=== PATIENT | male | born 1930 | race Caucasian/White ===

== ENCOUNTER 2020-06-05 10:02 | Inpatient (IN) | payer MEDICARE, OTHER ==
[~2020-06-05] VITALS: Ht 172.7 cm; Wt 64.9 kg
--- NOTE | 2020-06-05 10:05 | NUR ---
[facility]IB [facility],C/O CHEST PAIN ON INSPIRATION,NTG SPRAY X 1. VS CHECKED. HOOKEN ON MONITOR. IV ACCESS STARTED. BLOOD DRAW DONE. . AWAITING MD BULL.
[2020-06-05 10:24] LABS: MEAN CORPUSCULAR VOLUME 83 fL (80-96)
[2020-06-05 10:28] LABS: BASOPHILS # (AUTO) 0.3 /CMM (0.0-0.2); BASOPHILS % (AUTO) 2.7 % (0.0-2.0); EOSINOPHILS % (AUTO) 0.5 % (0.0-6.0); HEMATOCRIT 43 % (39-51); HEMOGLOBIN 14.4 g/dL (13.5-17.5); LYMPHOCYTES # (AUTO) 4.8 /CMM (0.8-4.8); MEAN CORPUSCULAR HGB CONC 33 g/dl (31.0-36.0); MONOCYTES # (AUTO) 0.9 /CMM (0.1-1.30); MONOCYTES % (AUTO) 9.4 % (2.0-12.0); NEUTROPHILS # (AUTO) 3.6 /CMM (1.8-8.9); NEUTROPHILS % (AUTO) 37.4 % (43.0-81.0); PLATELET COUNT (AUTO) 160 /CMM (150-450); RED BLOOD CELL COUNT(AUTO) 5.22 MIL/uL (4.5-6.0); WHITE BLOOD COUNT (AUTO) 9.7 K/uL (4.3-11.0)
[2020-06-05 10:31] LABS: CREATININE 0.9 mg/dL (0.6-1.3); POTASSIUM 3.9 mmol/L (3.5-5.1)
--- NOTE | 2020-06-05 11:01 | NUR ---
MOVE SHEET SUBMITTED AND CALLED FOR TELE BED.
[2020-06-05] MEDS ORDERED: MULT-447 PO (11:46)
[2020-06-05] MEDS ORDERED: CARB-93 PO (11:46)
[2020-06-05] MEDS ORDERED: BISA5TAB10 PO (11:46)
[2020-06-05] MEDS ORDERED: LOSA50TA39 PO (11:46)
[2020-06-05] MEDS ORDERED: HYDR-4384 PO (11:46)
[2020-06-05] MEDS ORDERED: AMAN100T PO (11:46)
[2020-06-05] MEDS ORDERED: NA P133E RC (11:46)
[2020-06-05] MEDS ORDERED: CRAN425C6 PO (11:46)
[2020-06-05] MEDS ORDERED: MAGN400O6 PO (11:46)
[2020-06-05] MEDS ORDERED: ACET-868 PO (11:46)
[2020-06-05] MEDS ORDERED: GABA-532 PO (11:46)
[2020-06-05] MEDS ORDERED: POLY17PO4 PO (11:46)
[2020-06-05] MEDS ORDERED: ACID1TAB12 PO (11:46)
[2020-06-05] MEDS ORDERED: DONE10TA44 PO (11:46)
[2020-06-05] MEDS ORDERED: CITA20TA19 PO (11:46)
[2020-06-05] MEDS ORDERED: LIDO30AD10 TP (11:46)
[2020-06-05] MEDS ORDERED: TERA2CAP4 PO (11:46)
[2020-06-05] MEDS ORDERED: DOCU-141 PO (11:46)
[2020-06-05] MEDS ORDERED: BISA10SU11 RC (11:46)
[2020-06-05] MEDS ORDERED: MELA3TAB41 PO (11:46)
[2020-06-05] MEDS ORDERED: CLON0.5T4 PO (11:46)
[2020-06-05] MEDS ORDERED: PANT40TA2 PO (11:46)
[2020-06-05] MEDS ORDERED: QUET25TA PO (11:46)
[2020-06-05] MEDS ORDERED: ACET-1951 PO (11:46)
[2020-06-05] MEDS ORDERED: TAMS-12 PO (11:46)
[2020-06-05] MEDS ORDERED: ATOR10TA PO (11:46)
--- NOTE | 2020-06-05 13:05 | NUR ---
[facility] ([facility]) [phone]
--- NOTE | 2020-06-05 13:47 | NUR ---
covid swab done sent to lab
[2020-06-05] MEDS ORDERED: MAGNESIUM HYDROXIDE 30 ML UDC PO PRN (14:00)
[2020-06-05] MEDS ORDERED: Z GUARD REMEDY 2 OZ OINT TP PRN (14:00)
[2020-06-05] MEDS ORDERED: ONDANSETRON HCL/PF 4 MG/2 ML VIAL IVP PRN (14:00)
[2020-06-05] MEDS ORDERED: MORPHINE SULFATE INJ 2 MG/ML DISP.SYRIN IV PRN (14:00)
[2020-06-05] MEDS ORDERED: MAG HYDROX/AL HYDROX/SIMETH 30 ML UDC PO PRN (14:00)
[2020-06-05] MEDS ORDERED: HYDROCODONE/APAP 5/325MG TABLET PO PRN (14:00)
[2020-06-05 14:45] LABS: D-DIMER 1.58 mg/L(FEU (0.17-0.50)
[2020-06-05 15:24] LABS: C-REACTIVE PROTEIN 2.8 mg/dL (0.0-0.9)
--- NOTE | 2020-06-05 16:55 | NUR ---
[facility] BED 120-1 RN IS LEONARD
--- NOTE | 2020-06-05 17:00 | NUR ---
report given to marilee szymanski at [facility].
--- NOTE | 2020-06-05 18:14 | NUR ---
transferred to [facility]
--- NOTE | 2020-06-05 18:15 | NUR ---
TASSEL CLIPPER NOTES RECEIVED PT FROM E.R. STAFF [facility]IA [facility], PT IS AWAKE, ALERT AND VERBALLY RESPONSIVE, ASSISTED TO BED, MADE COMFORTABLE, WITH COMPLAINT OF SLIGHT CHEST PAIN WHEN BREATHING, RESPIRATIONS NORMAL, VITAL SIGNS TAKEN AND RECORDED, PM MEDS GIVEN, ADMITTING ORDERS RECEIVED FROM MD, KEPT COMFORTABLE AND ACTUARIAL INTERNSHIP BED.
[2020-06-05 18:20] VITALS: BP 153/70
[2020-06-05] MEDS: CARBIDOPA/LEVODOPA 25/100 MG 1 UDTAB PO SCH ×2 (18:34→22:23)
[2020-06-05] MEDS: ACETAMINOPHEN 325 MG TABLET PO PRN (18:34)
[2020-06-05] MEDS: DOCUSATE SODIUM 100 MG CAPSULE PO SCH (18:34)
[2020-06-05] MEDS: clonazePAM 0.5 MG TABLET PO SCH (18:34)
[2020-06-05] MEDS: ENOXAPARIN SODIUM 40 MG/0.4 ML DISP.SYRIN SQ SCH (18:39)
[2020-06-05 20:00] VITALS: BP 143/64
--- NOTE | 2020-06-05 20:00 | NUR ---
RN NOTE RECEIVED PT IN BED A/O X 1, SR ON TELE MONITOR HR IN THE 60'S, PT ON ROOM AIR, IV TO RAC PATENT INTACT AND FLUSHING WELL. CALL LIGHT WITHIN REACH, BED LOCKED AND IN THE LOWEST POSITION SAFETY MEASURES IN PLACE WILL CONT. TO MONITOR PT.
[2020-06-05] MEDS: GABAPENTIN 100 MG CAPSULE PO SCH (22:23)
[2020-06-05] MEDS: DONEPEZIL 5 MG TABLET PO SCH (22:24)
[2020-06-05] MEDS: AMANTADINE HCL 100 MG CAPSULE PO SCH (22:24)
[2020-06-05] MEDS: TAMSULOSIN 0.4 MG CAP.SR.24H PO SCH (22:24)
[2020-06-05] MEDS: TERAZOSIN HCL 1 MG CAPSULE PO SCH (22:25)
[2020-06-05] MEDS: QUETIAPINE FUMARATE 25 MG TABLET PO SCH (22:26)
[2020-06-05] MEDS: ATORVASTATIN 10 MG TABLET PO SCH (22:26)
[2020-06-05] MEDS: IV 1/2NS 1000 ML 1,000 ML IV PRN (23:37)
[2020-06-06] VITALS: BP 130/68
[2020-06-06 04:00] VITALS: BP 149/83
[2020-06-06] MEDS: GABAPENTIN 100 MG CAPSULE PO SCH ×3 (05:25→21:04)
[2020-06-06 06:54] LABS: BASOPHILS % (AUTO) 0.1 % (0.0-2.0); EOSINOPHILS % (AUTO) 0.3 % (0.0-6.0); HEMATOCRIT 41 % (39-51); HEMOGLOBIN 13.4 g/dL (13.5-17.5); LYMPHOCYTES # (AUTO) 5.1 /CMM (0.8-4.8); LYMPHOCYTES % (AUTO) 52.7 % (20.0-44.0); MEAN CORPUSCULAR HGB CONC 33 g/dl (31.0-36.0); MEAN CORPUSCULAR VOLUME 83 fL (80-96); MONOCYTES # (AUTO) 1.1 /CMM (0.1-1.30); MONOCYTES % (AUTO) 11.6 % (2.0-12.0); NEUTROPHILS # (AUTO) 3.4 /CMM (1.8-8.9); NEUTROPHILS % (AUTO) 35.3 % (43.0-81.0); PLATELET COUNT (AUTO) 145 /CMM (150-450); RED BLOOD CELL COUNT(AUTO) 4.92 MIL/uL (4.5-6.0); WHITE BLOOD COUNT (AUTO) 9.7 K/uL (4.3-11.0)
[2020-06-06 07:25] LABS: BILIRUBIN,DIRECT 0.3 mg/dL (0.0-0.2); BILIRUBIN,TOTAL 0.9 mg/dL (0.2-1.0); CALCIUM, SERUM 8.3 mg/dL (8.5-10.1); CREATININE 0.7 mg/dL (0.6-1.3); PHOSPHORUS 4.1 mg/dL (2.5-4.9); POTASSIUM 3.9 mmol/L (3.5-5.1); TOTAL PROTEIN, SERUM 6.1 g/dL (6.4-8.2)
[2020-06-06 07:26] LABS: THYROID STIMULATING HORMONE 1.028 uIU/mL (0.358-3.74)
[2020-06-06] MEDS ORDERED: PANTOPRAZOLE 40 MG TABLET.DR PO SCH (07:30)
[2020-06-06 08:00] VITALS: BP 192/93
--- NOTE | 2020-06-06 08:55 | NUR ---
WOUND CARE CONSULT: REVIEWED CHART, NURSING DOCUMENTATION AND PHOTO WHICH INDICATES LEFT HEEL INTACT DEEP TISSUE INJURY, PRESENT ON ADMISSION. RECOMMENDATIONS MADE FOR SKIN PROTECTION. DISCUSSED WITH NURSING STAFF. MD IN AGREEMENT WITH PLAN OF CARE. PT IS ON [facility] ISOFLEX LOW AIRLOSS BED.
[2020-06-06] MEDS: LIDOCAINE 5% (PATCH) 1 EA PATCH TP SCH (09:00)
[2020-06-06] MEDS: clonazePAM 0.5 MG TABLET PO SCH ×2 (10:08→18:08)
[2020-06-06] MEDS: DOCUSATE SODIUM 100 MG CAPSULE PO SCH ×2 (10:08→18:08)
[2020-06-06] MEDS: CITALOPRAM HYDROBROMIDE 20 MG TABLET PO SCH (10:08)
[2020-06-06] MEDS: LOSARTAN POTASSIUM 50 MG TABLET PO SCH (10:09)
[2020-06-06] MEDS: AMANTADINE HCL 100 MG CAPSULE PO SCH ×2 (10:09→21:18)
[2020-06-06] MEDS: PANTOPRAZOLE 40 MG TABLET.DR PO SCH (10:10)
[2020-06-06] MEDS: POLYETHYLENE GLYCOL 3350 17 GM POWD.PACK PO SCH (10:10)
[2020-06-06] MEDS: CARBIDOPA/LEVODOPA 25/100 MG 1 UDTAB PO SCH ×4 (10:11→21:04)
[2020-06-06] MEDS: MULTIVITAMINS,THERAGRAN 1 UDTAB TABLET PO SCH (10:13)
[2020-06-06 14:51] VITALS: BP 130/61
[2020-06-06 16:43] VITALS: BP 145/69
[2020-06-06] MEDS: ENOXAPARIN SODIUM 40 MG/0.4 ML DISP.SYRIN SQ SCH (18:12)
--- NOTE | 2020-06-06 19:29 | NUR ---
PAtient remains on room air ; saturation above 92%. IV line intact and patent and fluids running as ordered. PAtient kept clean and dry;comfortable at all times. Medication compliant ; meds given crushed ; diet changed to soft due to pt has no dentures. Endorsed to next shift for NICOLE
[2020-06-06 20:00] VITALS: BP 142/63
--- NOTE | 2020-06-06 20:00 | NUR ---
code clerk Opening note Received pt in bed, a/o x2. Breathing even and unlabored in RA. 02 saturation 95%. No sob or acute distress noted. Sinus Rhythm of potline monitor. HR 70. Denies any pain or discomfort. Right AC #18 patent and intact. IV fluids infusing well. All needs rendered. Call light within reach. Bed in lowest position.Repositioned. Will continue to monitor
[2020-06-06] MEDS: IV 1/2NS 1000 ML 1,000 ML IV PRN (21:02)
[2020-06-06] MEDS: TAMSULOSIN 0.4 MG CAP.SR.24H PO SCH (21:04)
[2020-06-06] MEDS: DONEPEZIL 5 MG TABLET PO SCH (21:04)
[2020-06-06] MEDS: TERAZOSIN HCL 1 MG CAPSULE PO SCH (21:06)
[2020-06-06] MEDS: ATORVASTATIN 10 MG TABLET PO SCH (21:07)
[2020-06-06] MEDS: QUETIAPINE FUMARATE 25 MG TABLET PO SCH (21:07)
[2020-06-07] VITALS: BP 154/73
[2020-06-07 04:00] VITALS: BP 141/64
[2020-06-07] MEDS: GABAPENTIN 100 MG CAPSULE PO SCH ×3 (04:29→21:57)
[2020-06-07] MEDS: PANTOPRAZOLE 40 MG TABLET.DR PO SCH (06:35)
--- NOTE | 2020-06-07 06:38 | NUR ---
denture contour wire specialist Closing note Pt in bed, asleep but easily arousable. Breathing even and unlabored in RA. o2 saturation is 94%.Sinus Rhythm on secured entrance monitor. HR 80. O2 saturation at 97%. Denies any pain or discomfort. Right AC IV site patent and intact. 0.45%NS at 50ml/hr fluids infusing well. All needs rendered. Repositioned q2h. Kept clean and dry. Call light within reach. Will endorse to am nurse for continuity of care.
[2020-06-07 06:40] LABS: BASOPHILS % (AUTO) 0.1 % (0.0-2.0); EOSINOPHILS % (AUTO) 0.4 % (0.0-6.0); HEMATOCRIT 41 % (39-51); HEMOGLOBIN 13.8 g/dL (13.5-17.5); LYMPHOCYTES # (AUTO) 4.6 /CMM (0.8-4.8); LYMPHOCYTES % (AUTO) 51.6 % (20.0-44.0); MEAN CORPUSCULAR HGB CONC 33 g/dl (31.0-36.0); MEAN CORPUSCULAR VOLUME 82 fL (80-96); MONOCYTES # (AUTO) 1.1 /CMM (0.1-1.30); MONOCYTES % (AUTO) 12.3 % (2.0-12.0); NEUTROPHILS # (AUTO) 3.2 /CMM (1.8-8.9); NEUTROPHILS % (AUTO) 35.6 % (43.0-81.0); PLATELET COUNT (AUTO) 138 /CMM (150-450); RED BLOOD CELL COUNT(AUTO) 5.05 MIL/uL (4.5-6.0); WHITE BLOOD COUNT (AUTO) 8.9 K/uL (4.3-11.0)
[2020-06-07 07:19] LABS: CALCIUM, SERUM 8.3 mg/dL (8.5-10.1); CREATININE 0.6 mg/dL (0.6-1.3); POTASSIUM 3.9 mmol/L (3.5-5.1)
--- NOTE | 2020-06-07 07:40 | NUR ---
TELE/RN OPENING NOTES RECEIVED PATIENT ON BED ALERT AND ORIENTED X1. PATIENT IN NO APPARENT RESPIRATORY DISTRESS NOTED. NO SIGN AND SYMPTOM OF PAIN AT THIS TIME. TELE MONITOR. IN PLACED READING SINUS RHYTHM 67 BPM. WILL CONTINUE TO MONITOR
[2020-06-07 08:00] VITALS: BP 145/65
[2020-06-07] MEDS: LIDOCAINE 5% (PATCH) 1 EA PATCH TP SCH (09:10)
[2020-06-07] MEDS: CARBIDOPA/LEVODOPA 25/100 MG 1 UDTAB PO SCH ×4 (09:10→21:50)
[2020-06-07] MEDS: CITALOPRAM HYDROBROMIDE 20 MG TABLET PO SCH (09:10)
[2020-06-07] MEDS: POLYETHYLENE GLYCOL 3350 17 GM POWD.PACK PO SCH (09:10)
[2020-06-07] MEDS: DOCUSATE SODIUM 100 MG CAPSULE PO SCH ×2 (09:10→17:53)
[2020-06-07] MEDS: clonazePAM 0.5 MG TABLET PO SCH ×2 (09:10→17:53)
[2020-06-07] MEDS: LOSARTAN POTASSIUM 50 MG TABLET PO SCH (09:11)
[2020-06-07] MEDS: MULTIVITAMINS,THERAGRAN 1 UDTAB TABLET PO SCH (09:12)
[2020-06-07] MEDS: AMANTADINE HCL 100 MG CAPSULE PO SCH ×2 (09:15→21:50)
[2020-06-07 12:00] VITALS: BP 142/70
[2020-06-07 16:00] VITALS: BP 166/70
[2020-06-07] MEDS: IV 1/2NS 1000 ML 1,000 ML IV PRN (17:52)
[2020-06-07] MEDS: ENOXAPARIN SODIUM 40 MG/0.4 ML DISP.SYRIN SQ SCH (18:12)
--- NOTE | 2020-06-07 19:01 | NUR ---
TELE/RN CLOSING NOTES PATIENT IS ON BED ALERT AND ORIENTED X1. PATIENT IN NO APPARENT RESPIRATORY DISTRESS NOTED. NO COMPLAINED OF PAIN. NOTED AT THIS TIME. IV ACCESS AT RIGHT AC # 18G WITH IV FLUID OF 1/2 NS 1L AT 50 ML/HR ON AND INFUSING WELL. TELE MONITOR IN PLACED SINUS TACHY 104 BPM. SEEN AND EXAMINED BY MD WITH ORDERS MADE AND CARRIED OUT. ALL DUE MEDICATIONS WAS GIVEN. SAFETY PRECAUTIONS WAS IN PLACED . SIDE RAILS UP X2. CALL LIGHT WITHIN REACH. WILL ENDORSED TO FINISHING RANGE FEEDER FOR NICOLE.
[2020-06-07 20:00] VITALS: BP 162/72
--- NOTE | 2020-06-07 21:00 | NUR ---
SPOKE WITH DC LEIDY UPDATED ON POC; PORK ALLERGY ADDED STATES THAT PATIENT DOES NOT EAT PORK FOR SABIANISM REASONS. PORK ADDED TO ALLERGIES.
[2020-06-07] MEDS: TAMSULOSIN 0.4 MG CAP.SR.24H PO SCH (21:50)
[2020-06-07] MEDS: ATORVASTATIN 10 MG TABLET PO SCH (21:51)
[2020-06-07] MEDS: ACETAMINOPHEN 325 MG TABLET PO PRN (21:51)
[2020-06-07] MEDS: TERAZOSIN HCL 1 MG CAPSULE PO SCH (21:51)
[2020-06-07] MEDS: DONEPEZIL 5 MG TABLET PO SCH (21:52)
[2020-06-07] MEDS: QUETIAPINE FUMARATE 25 MG TABLET PO SCH (21:57)
--- NOTE | 2020-06-07 22:15 | NUR ---
CLARIFIED PORK ALLERGY; MEDICATIONS DERIVED FROM PORK OK SPOKE WITH PATIENT DAUGHTER DC STATES PATIENT DOES NOT EAT PORK; ABSTAINS FOR ADVENT REASONS FROM CONSUMPTION. ALLERGY ENTERED FOOD ALLERGY. STATES THAT MEDICATIONS DERIVED FROM PORK ARE OK IF MEDICALLY NECESSARY.
[2020-06-08 00:25] VITALS: BP 124/52
[2020-06-08 04:00] VITALS: BP 117/57
[2020-06-08] MEDS: GABAPENTIN 100 MG CAPSULE PO SCH ×2 (05:23→12:52)
[2020-06-08 06:37] LABS: BASOPHILS % (AUTO) 0.2 % (0.0-2.0); EOSINOPHILS % (AUTO) 0.4 % (0.0-6.0); HEMATOCRIT 41 % (39-51); HEMOGLOBIN 13.6 g/dL (13.5-17.5); LYMPHOCYTES # (AUTO) 6.1 /CMM (0.8-4.8); LYMPHOCYTES % (AUTO) 59.1 % (20.0-44.0); MEAN CORPUSCULAR HGB CONC 33 g/dl (31.0-36.0); MEAN CORPUSCULAR VOLUME 82 fL (80-96); MONOCYTES # (AUTO) 1.1 /CMM (0.1-1.30); MONOCYTES % (AUTO) 10.3 % (2.0-12.0); NEUTROPHILS # (AUTO) 3.1 /CMM (1.8-8.9); PLATELET COUNT (AUTO) 135 /CMM (150-450); RED BLOOD CELL COUNT(AUTO) 4.98 MIL/uL (4.5-6.0); WHITE BLOOD COUNT (AUTO) 10.3 K/uL (4.3-11.0)
[2020-06-08 07:01] LABS: CALCIUM, SERUM 8.3 mg/dL (8.5-10.1); CREATININE 0.6 mg/dL (0.6-1.3); POTASSIUM 3.8 mmol/L (3.5-5.1)
[2020-06-08] MEDS: PANTOPRAZOLE 40 MG TABLET.DR PO SCH (07:28)
[2020-06-08 08:00] VITALS: BP 155/70
--- NOTE | 2020-06-08 08:03 | NUR ---
TELE/RN OPENING NOTES RECEIVED PATIENT ON BED ALERT AND ORIENTED X1. PATIENT IN NO APPARENT RESPIRATORY DISTRESS NOTED. NO SIGN AND SYMPTOM OF PAIN AT THIS TIME. TELE MONITOR IN PLACED READING SINUS RHYTHM, SINUS TACHY 61 BPM. WILL CONTINUE TO MONITOR.
[2020-06-08 08:37] LABS: LYMPHOCYTES % (MANUAL) 64 % (16-48); MONOCYTES % (MANUAL) 5 % (0-11.0); NEUTROPHILS % (MANUAL) 31 (42-76)
[2020-06-08] MEDS: clonazePAM 0.5 MG TABLET PO SCH (08:59)
[2020-06-08] MEDS: AMANTADINE HCL 100 MG CAPSULE PO SCH (09:01)
[2020-06-08] MEDS: DOCUSATE SODIUM 100 MG CAPSULE PO SCH (09:01)
[2020-06-08 09:02] VITALS: BP 155/70
[2020-06-08] MEDS: CARBIDOPA/LEVODOPA 25/100 MG 1 UDTAB PO SCH ×2 (09:02→12:52)
[2020-06-08] MEDS: LOSARTAN POTASSIUM 50 MG TABLET PO SCH (09:02)
[2020-06-08] MEDS: CITALOPRAM HYDROBROMIDE 20 MG TABLET PO SCH (09:02)
[2020-06-08] MEDS: MULTIVITAMINS,THERAGRAN 1 UDTAB TABLET PO SCH (09:02)
[2020-06-08] MEDS: LIDOCAINE 5% (PATCH) 1 EA PATCH TP SCH (09:03)
[2020-06-08] MEDS: POLYETHYLENE GLYCOL 3350 17 GM POWD.PACK PO SCH (09:04)
--- NOTE | 2020-06-08 14:55 | NUR ---
RN NOTES PATIENT IS ALERT AND ORIENTED X1. NO SIGN AND SYMPTOM OF PAIN NOTED. PATIENT IN NO APPARENT RESPIRATORY DISTRESS NOTES. SEEN AND EXAMINED BY MD WITH ORDERS MADE AND CARRIED OUT. ALL DUE MEDICATIONS WAS GIVEN. REPORT WAS GIVEN TO CL CARTER AT [facility]. PATIENT LEFT IN MEDICALLY STABLE CONDITION. DUPLICATION SPECIALIST BY 2 EMT VIA AMBULANCE.
== END 2020-06-08 14:29 | DRG 178 ==
LOC: ER 10:06 → TELE1 17:03
PROVIDERS: ADMIT Nurse Practitioner Acute Care; ATTEND Nurse Practitioner Acute Care
DX: U07.1 COVID-19 (principal); D68.59 Other primary thrombophilia; E44.1 Mild protein-calorie malnutrition; C18.9 Malignant neoplasm of colon, unspecified; F25.9 Schizoaffective disorder, unspecified; N40.0 Benign prostatic hyperplasia without lower urinary tract symptoms; K21.9 Gastro-esophageal reflux disease without esophagitis; I10 Essential (primary) hypertension; Z86.73 Personal history of transient ischemic attack (TIA), and cerebral infarction without residual deficits; E78.5 Hyperlipidemia, unspecified; G20 Parkinson's disease; F02.80 Dementia in other diseases classified elsewhere, unspecified severity, without behavioral disturbance, psychotic disturbance, mood disturbance, and anxiety; R13.10 Dysphagia, unspecified; M19.90 Unspecified osteoarthritis, unspecified site; F32.9 Major depressive disorder, single episode, unspecified; Z88.8 Allergy status to other drugs, medicaments and biological substances; Z79.899 Other long term (current) drug therapy; I70.0 Atherosclerosis of aorta; F41.9 Anxiety disorder, unspecified; Z88.6 Allergy status to analgesic agent; R26.9 Unspecified abnormalities of gait and mobility; R27.8 Other lack of coordination; Z74.09 Other reduced mobility
CPT/HCPCS: 36415; 71045-TC; 80048-TC; 80053-TC; 80061-TC; 80076-TC; 82550-TC; 82728-TC; 83735-TC; 83880; 84100-TC; 84443-TC; 84484-TC; 85025-TC; 85378-TC; 85385-TC; 85730-TC; 86140-TC; 87081-TC; G0378; J1650; J3490; J7030; U0003

== ENCOUNTER 2020-12-27 15:42 | Emergency (ER) | payer MEDICARE, OTHER ==
[~2020-12-27] VITALS: Ht 170.2 cm; Wt 63.5 kg
[~2020-12-27 15:42] MED LIST: ACET-1951 PO; ACET-868 PO; ACID1TAB12 PO; AMAN100T PO; ATOR10TA PO; BISA10SU11 RC; BISA5TAB10 PO; CARB-300 PO; CITA20TA19 PO; CLON0.5T4 PO; CRAN425C6 PO; DOCU-141 PO; DONE10TA44 PO; GABA-532 PO; HYDR-4384 PO; LIDO30AD10 TP; LOSA50TA39 PO; MAGN400O6 PO; MELA3TAB41 PO; MULT-447 PO; NA P133E RC; PANT40TA2 PO; POLY17PO4 PO; QUET25TA PO; TAMS-12 PO; TERA2CAP4 PO
--- NOTE | 2020-12-27 15:42 | NUR ---
PT [id number] FRM SNIF FOR NOTED "TONIC/CLONIC" SEIZURE LIKE ACTIVITY. 2 MINS. PT IS AAOX2, NOT IN RESPIRATORY DISTRESS, HOOKED TO MIXER CRANE OPERATOR, KEPT RESTED AND COMFORTABLE. ON SEIZURE PREC. WILL CONTINUE TO MONITOR.
--- NOTE | 2020-12-27 15:55 | NUR ---
AT BEDSIDE FOR EVAL.
--- NOTE | 2020-12-27 16:05 | NUR ---
IV LINE ESTABLISHED BLOOD DRAWN AND SENT TO LAB.
[2020-12-27 16:16] LABS: BASOPHILS # (AUTO) 0.3 K/uL (0.0-0.2); BASOPHILS % (AUTO) 2.2 % (0.0-2.0); EOSINOPHILS % (AUTO) 0.3 % (0.0-6.0); HEMATOCRIT 41 % (39-51); HEMOGLOBIN 13.4 g/dL (13.5-17.5); LYMPHOCYTES # (AUTO) 2.3 K/uL (0.8-4.8); LYMPHOCYTES % (AUTO) 18.4 % (20.0-44.0); MEAN CORPUSCULAR HGB CONC 33 g/dl (31.0-36.0); MEAN CORPUSCULAR VOLUME 87 fL (80-96); MONOCYTES # (AUTO) 0.7 K/uL (0.1-1.30); MONOCYTES % (AUTO) 5.9 % (2.0-12.0); NEUTROPHILS # (AUTO) 9.1 K/uL (1.8-8.9); NEUTROPHILS % (AUTO) 73.2 % (43.0-81.0); PLATELET COUNT (AUTO) 169 K/uL (150-450); RED BLOOD CELL COUNT(AUTO) 4.67 MIL/uL (4.5-6.0); WHITE BLOOD COUNT (AUTO) 12.4 K/uL (4.3-11.0)
[2020-12-27 16:22] LABS: CALCIUM, SERUM 9.3 mg/dL (8.5-10.1); CARBON DIOXIDE 21 mmol/L (21-32); CHLORIDE 102 mmol/L (98-107); CREATININE 1.2 mg/dL (0.6-1.3); GLUCOSE 163 mg/dL (74-106); POTASSIUM 3.7 mmol/L (3.5-5.1); SODIUM SERUM 138 mmol/L (136-145); UREA NITROGEN, BLOOD 24 mg/dL (7-18)
--- NOTE | 2020-12-27 16:22 | NUR ---
PT IS WHEELED TO CT SCAN VIA [facility].
[2020-12-27 16:28] LABS: ALANINE AMINOTRANSFERASE 10 U/L (12-78); ALKALINE PHOSPHATASE 78 U/L (46-116); ASPARTATE AMINOTRANSFERASE 19 U/L (15-37); BILIRUBIN,DIRECT 0.3 mg/dL (0.0-0.2); BILIRUBIN,TOTAL 0.8 mg/dL (0.2-1.0); TOTAL PROTEIN, SERUM 7.2 g/dL (6.4-8.2)
[2020-12-27] MEDS ORDERED: ASCO500C17 PO (16:44)
--- NOTE | 2020-12-27 18:00 | NUR ---
[facility] CALLED ETA 60 MINS PER BERTHA
--- NOTE | 2020-12-27 18:52 | NUR ---
IV removed. Catheter intact and site benign. Pressure and 4x4 applied to site. No bleeding noted.
--- NOTE | 2020-12-27 18:55 | NUR ---
REPORT GIVEN TO EMS FOR PT TRANSFER BACK TO [facility].
--- NOTE | 2020-12-27 19:00 | NUR ---
SPOKED TO RAUL COCHRAN OF [facility] FOR PT DISCHARGE BACK TO FACILITY.
[2020-12-27 19:08] VITALS: BP 147/77
== END 2020-12-27 19:08 | disposition hospice, inpatient (51) ==
LOC: ER 16:18
DX: R56.9 Unspecified convulsions (principal); I10 Essential (primary) hypertension; E78.5 Hyperlipidemia, unspecified; K21.9 Gastro-esophageal reflux disease without esophagitis; M19.90 Unspecified osteoarthritis, unspecified site; F32.9 Major depressive disorder, single episode, unspecified; F25.9 Schizoaffective disorder, unspecified; F03.90 Unspecified dementia, unspecified severity, without behavioral disturbance, psychotic disturbance, mood disturbance, and anxiety; Z86.73 Personal history of transient ischemic attack (TIA), and cerebral infarction without residual deficits; Z91.018 Allergy to other foods; Z88.6 Allergy status to analgesic agent; Z88.8 Allergy status to other drugs, medicaments and biological substances; Z79.899 Other long term (current) drug therapy
CPT/HCPCS: 36415; 70450-TC; 71045-TC; 80048-TC; 80076-TC; 84484-TC; 85025-TC